=== PATIENT | female | born 1975 | race African-American/Black ===

== ENCOUNTER 2023-02-22 13:23 | Emergency (ER) | payer OTHER | END 2023-02-22 16:02 | disposition home or self-care (01) | LOC: NAV ERS 13:23 | DX: M17.12 Unilateral primary osteoarthritis, left knee (principal); M25.511 Pain in right shoulder; M79.604 Pain in right leg; E11.9 Type 2 diabetes mellitus without complications; I10 Essential (primary) hypertension; Z79.899 Other long term (current) drug therapy ==